=== PATIENT | male | born 1975 | race Caucasian/White ===

== ENCOUNTER 2022-09-02 13:53 | Outpatient (CLI) | payer OTHER | END 2022-09-02 13:54 | disposition home or self-care (01) | LOC: BICULT 13:53 | PROVIDERS: ATTEND Family Medicine | DX: R22.0 Localized swelling, mass and lump, head (principal) | CPT/HCPCS: 76999 ==

== ENCOUNTER → 2022-12-07 | Day surgery (SDC) | payer OTHER ==
[2022-12-04 09:56] VITALS: BMI 35.9
== END | disposition home or self-care (01) ==
LOC: CT 12:55
PROVIDERS: ATTEND Otolaryngology Plastic Surgery within the Head & Neck
DX: K11.8 Other diseases of salivary glands (principal); Z53.8 Procedure and treatment not carried out for other reasons
CPT/HCPCS: 76536